=== PATIENT | female | born 1970 | race Caucasian/White ===

== ENCOUNTER 2020-12-31 18:36 | Emergency (ER) | payer BC ==
--- NOTE | 2020-12-31 20:17 | EDM.PDOC ---
ED HPI GENERAL MEDICAL PROBLEM - General Chief Complaint: Lower Extremity Injury/Pain Stated Complaint: POSSIBLE BLOOD CLOT Time Seen by Provider: 12/31/20 19:00 Source of Information: Reports: Patient History Limitations: Reports: No Limitations - History of Present Illness INITIAL COMMENTS - FREE TEXT/NARRATIVE: Patient presented to the ED because of Right leg pain which started several day ago. there is no recent trauma or injury. Denies having any chest pain or dyspnea. - Related Data Allergies Allergy/AdvReac Type Severity Reaction Status Date / Time No Known Allergies Allergy Verified 12/31/20 19:06 Home Meds: Home Meds Dimethyl Fumarate [Tecfidera] 240 mg PO BID 06/02/13 [History] FLUoxetine HCl [Fluoxetine HCl] 20 mg PO DAILY 06/02/13 [History] Liraglutide [Victoza 2-Francisco] 0.2 ml SUBCUT DAILY 06/02/13 [History] Lisinopril 40 mg PO DAILY 06/02/13 [History] QUEtiapine Fumarate [Quetiapine Fumarate] 25 mg PO DAILY 06/02/13 [History] Review of Systems - Review of Systems Review Of Systems: See Below Constitutional: Reports: No Symptoms Eyes: Reports: No Symptoms Ears: Reports: No Symptoms Nose: Reports: No Symptoms Mouth/Throat: Reports: No Symptoms Respiratory: Reports: No Symptoms Cardiovascular: Reports: No Symptoms GI/Abdominal: Reports: No Symptoms Genitourinary: Reports: No Symptoms Musculoskeletal: Reports: Leg Pain Skin: Reports: No Symptoms Neurological: Reports: No Symptoms Psychiatric: Reports: No Symptoms ED EXAM, GENERAL - Physical Exam Exam: See Below Exam Limited By: No Limitations General Appearance: Alert, No Apparent Distress Eye Exam: Bilateral Eye: Proptosis Ears: Normal External Exam, Normal Canal Nose: Normal Inspection, Normal Mucosa, No Blood Throat/Mouth: Normal Inspection, Normal Lips, Normal Teeth, Normal Gums Head: Atraumatic, Normocephalic Neck: Normal Inspection, Supple, Non-Tender, Full Range of Motion Respiratory/Chest: No Respiratory Distress, Lungs Clear, Normal Breath Sounds, No Accessory Muscle Use, Chest Non-Tender Cardiovascular: Normal Peripheral Pulses, Regular Rate, Rhythm, No Edema, No Gallop, No JVD, No Murmur, No Rub GI/Abdominal: Normal Bowel Sounds, Soft, Non-Tender, No Organomegaly, No Distention, No Abnormal Bruit, No Mass Back Exam: Normal Inspection, Full Range of Motion Extremities: Normal Inspection, Normal Range of Motion, Other (tenderness rt calf area) Neurological: Alert, Oriented, CN II-XII Intact Psychiatric: Normal Affect Course - Vital Signs Text/Narrative:: [id number] Last Recorded V/S: Last Vital Signs Temp 35.8 C L 12/31/20 18:45 Pulse 89 12/31/20 18:45 Resp 17 12/31/20 18:45 BP 146/101 H 12/31/20 18:45 Pulse Ox 97 12/31/20 18:45 - Orders/Labs/Meds Labs: Laboratory Tests 12/31/20 Range/Units 19:55 D-Dimer, Quantitative 0.21 (0.0-0.59) mg/LFEU Departure - Departure Time of Disposition: 20:30 Disposition: Home, Self-Care 01 Condition: Good Clinical Impression: Leg pain - Discharge Information Instructions: Muscle Strain, [id number] Referrals: Lambert Mcmahon MD [Primary Care Provider] - Forms: ED Department Discharge Additional Instructions: Please read discharge instructions on leg pain Apply ice or heat whichever you prefer You can take Ibuprofen 800 mg every 8 hours as needed for pain Follow up as needed Sepsis Event Note (ED) - Focused Exam Vital Signs: Vital Signs Temp Pulse Resp BP Pulse Ox 12/31/20 18:45 35.8 C L 89 17 146/101 H 97
== END 2020-12-31 20:25 | disposition home or self-care (01) ==
LOC: FB.ED 18:36
DX: M79.604 Pain in right leg (principal); Z79.899 Other long term (current) drug therapy
CPT/HCPCS: 36415; 85379; 99283